=== PATIENT | male | born 1975 | race Two or more races ===

== ENCOUNTER 2018-01-29 19:42 | Inpatient (IN) | payer SELFPAY ==
[2018-01-29] MEDS ORDERED: Magnesium 2 GM/NS 0.9% 100 ML 2 GM in Premix Bag 1 BAG IVPB SCH (20:30)
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
[2018-01-29 20:37] LABS: Hemoglobin 13.8 g/dL (14.0-18.0); Mean Corpuscular HGB CONC 36.2 g/dL (32.0-36.0); Mean Corpuscular Volume 88.3 fL (78.0-98.0); Mean Platelet Volume 8.7 fL (7.4-10.4); Platelet Count 117 thou/uL (130-400); RBC Distribution Width 11.6 % (11.5-14.5)
[2018-01-29 20:39] LABS: Band 10 % (5-11); Lymphocytes 1 % (21-51); MDiff Complete? YES; Monocytes 10 % (0-10); Neutrophil 79 % (42-75); PLT Morphology Comment Appears Decreased; RBC Morphology Normal
[2018-01-29 20:46] LABS: Acetaminophen Less than 6.0 mcg/mL (10.0-30.0); Alcohol Less than 10 mg/dL (Less than 10); Lipase 40 U/L (8-78); Salicylate Less than 8.0 mg/dL (15.0-30.0)
[2018-01-29 20:47] LABS: ALT (SGPT) 85 U/L (8-55); AST (SGOT) 134 U/L (5-34); Alkaline Phosphatase 70 U/L (40-150); Anion Gap 22 mmol/L (10-20); BUN (Urea Nitrogen) 22 mg/dL (8.9-20.6); Bilirubin, Total 1.7 mg/dL (0.2-1.2); Calc. Creatinine Clearance 0 mL/min (70-130); Calcium 8.5 mg/dL (7.8-10.44); Carbon Dioxide 32 mmol/L (22-29); Estimated GFR-MDRD 54; Globulin 2.6 g/dL (2.4-3.5); Glucose 164 mg/dL (70-105); Protein, Total 6.6 g/dL (6.0-8.3)
[2018-01-29 20:51] LABS: Chloride 67 mmol/L (98-107); Potassium 2.1 mmol/L (3.5-5.1); Sodium 119 mmol/L (136-145)
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
[2018-01-29 21:45] LABS: Bilirubin Negative (Negative); Blood, Urine Large (Negative); Clarity CLOUDY (Clear); Glucose, Urine (Dipstick) Negative (Negative); Leukocyte Negative (Negative); Nitrite Negative (Negative); Protein, Urine (Dipstick) 100 mg/dL (Neg-Trace); Specific Gravity, Urine 1.016 (1.002-1.036); pH, Urine 6.5 (5.0-9.0)
[2018-01-29 21:47] LABS: Bacteria/HPF None Seen HPF (None Seen); Hyaline Casts/LPF 7-10 HYALINE CAST LPF (0-3 Hyaline); Pathc Cast-AUWi Flag 1.59 (0-2.49); Squamous Epithelial 0-3 HPF (0-3); WBC/HPF 0-3 HPF (0-3)
[2018-01-29 21:53] LABS: Medtox Reader # READER 4
[2018-01-29 21:55] LABS: Amphetamine Not Detected (NotDetected); Barbiturates Screen Not Detected (NotDetected); Benzodiazepine Screen Not Detected (NotDetected); Cocaine Metabolite Screen Not Detected (NotDetected); Medtox Control Line Valid? VALID (VALID); Methadone Not Detected (NotDetected); Methamphetamine Not Detected (NotDetected); Opiate Screen Not Detected (NotDetected); Oxycodone Screen Not Detected (NotDetected); Phencyclidine (PCP) Not Detected (NotDetected); THC/Cannabinoid Screen Not Detected (NotDetected); Transitional Epithelial 0-3 HPF (0-3); Tricyclic Screen Not Detected (NotDetected)
[2018-01-29 23:42] LABS: Anion Gap 17 mmol/L (10-20); BUN (Urea Nitrogen) 21 mg/dL (8.9-20.6); Calc. Creatinine Clearance 0 mL/min (70-130); Calcium 8.2 mg/dL (7.8-10.44); Carbon Dioxide 36 mmol/L (22-29); Estimated GFR-MDRD 67; Glucose 117 mg/dL (70-105); Sodium 121 mmol/L (136-145)
[2018-01-29 23:45] LABS: Chloride 70 mmol/L (98-107); Potassium 2.3 mmol/L (3.5-5.1)
[2018-01-30] MEDS ORDERED: Potassium Chloride 40 MEQ in Sodium Chloride 0.9% 250 ML 250 ML IVPB SCH
[2018-01-30] MEDS ORDERED: Potassium Chloride 20 MEQ TAB ONE (00:29)
[2018-01-30] MEDS ORDERED: Ondansetron HCl/PF 4 MG/2 ML Vial ONE (01:19)
[2018-01-30] MEDS ORDERED: Acetaminophen 325 MG TAB PO PRN (01:24)
[2018-01-30] MEDS ORDERED: Promethazine HCl 25 MG/ML VIAL IM/IV PRN (01:30)
[2018-01-30] MEDS ORDERED: Sodium Chloride 0.9% 1,000 ML IV SCH (01:30)
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
[2018-01-30 02:00] VITALS: BMI 24.5
[2018-01-30] MEDS: NS 0.9% w/ 40 MEQ KCL 1,000 ML IV SCH ×3 (02:43→21:18)
[2018-01-30 02:52] LABS: #Lymphocytes 0.5 thou/uL (1.20-3.40); #Monocytes 1.3 thou/uL (0.11-0.59); #Neutrophils 13.2 thou/uL (1.40-6.50); %Basophils 0.1 % (0.0-1.0); %Lymphocytes 3.2 % (21.0-51.0); %Monocytes 8.7 % (0.0-10.0); %Neutrophils 88.1 % (42.0-75.0); Hemoglobin 13.5 g/dL (14.0-18.0); Mean Corpuscular Hemoglobin 32.9 pg (27.0-31.0); Mean Platelet Volume 8.8 fL (7.4-10.4); Platelet Count 92 thou/uL (130-400); RBC Distribution Width 11.6 % (11.5-14.5); Red Blood Cell (RBC) Count 4.11 mill/uL (4.70-6.10)
[2018-01-30 03:09] LABS: Anion Gap 16 mmol/L (10-20); BUN (Urea Nitrogen) 22 mg/dL (8.9-20.6); Calc. Creatinine Clearance 98 mL/min (70-130); Calcium 8.3 mg/dL (7.8-10.44); Carbon Dioxide 37 mmol/L (22-29); Estimated GFR-MDRD 73; Glucose 108 mg/dL (70-105); Magnesium 3.5 mg/dL (1.6-2.6); Phosphorus 3.6 mg/dL (2.3-4.7); Sodium 122 mmol/L (136-145)
[2018-01-30 03:19] LABS: Chloride 72 mmol/L (98-107); Potassium 2.5 mmol/L (3.5-5.1)
[2018-01-30 05:17] LABS: Anion Gap 13 mmol/L (10-20); BUN (Urea Nitrogen) 21 mg/dL (8.9-20.6); Calc. Creatinine Clearance 99 mL/min (70-130); Carbon Dioxide 36 mmol/L (22-29); Chloride 75 mmol/L (98-107); Estimated GFR-MDRD 75; Glucose 113 mg/dL (70-105); Sodium 122 mmol/L (136-145)
[2018-01-30 05:22] LABS: Potassium 2.4 mmol/L (3.5-5.1)
[2018-01-30] MEDS ORDERED: Potassium Chloride 20 MEQ in Premix Bag 1 BAG IVPB SCH (06:30)
[2018-01-30] MEDS ORDERED: Famotidine/PF 20 mg/2ml Vial SLOW IVP SCH (09:00)
[2018-01-30 15:57] LABS: #Lymphocytes 0.6 thou/uL (1.20-3.40); #Neutrophils 12.5 thou/uL (1.40-6.50); %Basophils 0.1 % (0.0-1.0); %Eosinophils 0.1 % (0.0-10.0); %Lymphocytes 3.9 % (21.0-51.0); %Monocytes 6.8 % (0.0-10.0); Hemoglobin 14.7 g/dL (14.0-18.0); Mean Corpuscular Hemoglobin 32.5 pg (27.0-31.0); Mean Corpuscular Volume 90.3 fL (78.0-98.0); Mean Platelet Volume 8.6 fL (7.4-10.4); Platelet Count 92 thou/uL (130-400); RBC Distribution Width 11.6 % (11.5-14.5); Red Blood Cell (RBC) Count 4.52 mill/uL (4.70-6.10); White Blood Cell (WBC) Count 14.1 thou/uL (4.8-10.8)
[2018-01-30 16:12] LABS: Anion Gap 13 mmol/L (10-20); BUN (Urea Nitrogen) 18 mg/dL (8.9-20.6); Calc. Creatinine Clearance 90 mL/min (70-130); Calcium 8.5 mg/dL (7.8-10.44); Carbon Dioxide 35 mmol/L (22-29); Chloride 85 mmol/L (98-107); Estimated GFR-MDRD 66; Glucose 96 mg/dL (70-105); Sodium 130 mmol/L (136-145)
[2018-01-30 16:17] LABS: Potassium 2.6 mmol/L (3.5-5.1)
[2018-01-30 16:36] LABS: Potassium, Urine 12.1 mmol/L; Sodium, Urine Less than 20 mmol/L (Not Available)
[2018-01-30 16:43] LABS: HIV (1/2) Antibody/Antigen Non-Reactive (NonReactive); HIV 1/2 INDEX 0.24 S/CO (<1.00); Hep C IgG Ab Non-Reactive (NonReactive)
[2018-01-30] MEDS: Famotidine 20 MG TAB PO SCH (21:18)
[2018-01-30] MEDS ORDERED: Nicotine 14 MG PATCH TOP SCH (23:45)
[2018-01-31 04:11] LABS: #Lymphocytes 1.1 thou/uL (1.20-3.40); #Monocytes 0.8 thou/uL (0.11-0.59); #Neutrophils 5.5 thou/uL (1.40-6.50); %Basophils 0.2 % (0.0-1.0); %Eosinophils 0.2 % (0.0-10.0); %Neutrophils 73.7 % (42.0-75.0); Hemoglobin 12.7 g/dL (14.0-18.0); Mean Corpuscular HGB CONC 34.4 g/dL (32.0-36.0); Mean Corpuscular Hemoglobin 31.3 pg (27.0-31.0); Mean Platelet Volume 8.8 fL (7.4-10.4); Platelet Count 106 thou/uL (130-400); RBC Distribution Width 11.5 % (11.5-14.5); Red Blood Cell (RBC) Count 4.05 mill/uL (4.70-6.10); White Blood Cell (WBC) Count 7.5 thou/uL (4.8-10.8)
[2018-01-31 04:14] LABS: Anion Gap 11 mmol/L (10-20); BUN (Urea Nitrogen) 16 mg/dL (8.9-20.6); Calc. Creatinine Clearance 93 mL/min (70-130); Carbon Dioxide 32 mmol/L (22-29); Chloride 91 mmol/L (98-107); Estimated GFR-MDRD 69; Glucose 106 mg/dL (70-105); Sodium 131 mmol/L (136-145)
[2018-01-31 04:18] LABS: Magnesium 2.8 mg/dL (1.6-2.6); Potassium 2.6 mmol/L (3.5-5.1)
[2018-01-31] MEDS: Potassium Chloride 20 MEQ in Premix Bag 1 BAG IVPB SCH ×2 (04:36→08:28)
[2018-01-31] MEDS: Famotidine 20 MG TAB PO SCH ×2 (08:28→20:36)
[2018-01-31] MEDS: NS 0.9% w/ 40 MEQ KCL 1,000 ML IV SCH (11:34)
[2018-01-31 11:41] LABS: Osmolality, Urine 263 mOsm/kg (300-900)
[2018-01-31 12:00] LABS: Sodium, Urine 52 mmol/L (Not Available)
[2018-01-31] MEDS: ALPRAZolam 0.25 MG TAB PO PRN ×2 (12:58→20:36)
[2018-01-31] MEDS ORDERED: Potassium Chloride 20 MEQ TAB PO SCH (13:00)
--- NOTE | 2018-01-31 14:48 | PDOC.PN ---
- Subjective Encounter Start Date: 01/31/18 Encounter Start Time: 14:45 Subjective: reports anxiety.ready to leave AMA -: denies any drug abuse.denies any symptoms - Objective Resuscitation Status: Resuscitation Status FULL:Full Resuscitation MAR Reviewed: Yes Vital Signs & Weight: Vital Signs (12 hours) Temp Pulse Resp BP BP Pulse Ox 01/31/18 11:30 98.8 F 107 H 124/101 H 98 01/31/18 08:00 98.3 F 109 H 16 95 01/31/18 07:39 98.3 F 109 H 122/93 H 95 01/31/18 04:46 99 F 113 H 16 138/91 H 95 Weight Weight 173 lb 12.8 oz I&O: 01/30/18 01/31/18 02/01/18 06:59 06:59 06:59 Intake Total 820 3700 Output Total 1190 1900 Balance -370 1800 Result Diagrams: 01/31/18 03:21 01/31/18 03:21 Additional Labs: Laboratory Tests 01/30/18 15:44 Hepatitis C Antibody Non-Reactive HIV 1&2 Antigen & Ab Non-Reactive labs reviewed Phys Exam - Physical Examination Constitutional: NAD HEENT: PERRLA, moist MMs, sclera anicteric, oral pharynx no lesions Neck: no nodes, no JVD, supple, full ROM Respiratory: no wheezing, no rales, no rhonchi, wheezing present, clear to auscultation bilateral Cardiovascular: RRR, no significant murmur, no rub, irregular Gastrointestinal: soft, non-tender, no distention, positive bowel sounds Musculoskeletal: no edema, pulses present Neurological: non-focal, normal sensation, moves all 4 limbs Psychiatric: normal affect, A&O x 3 Skin: no rash Dx/Plan (1) Syncope Code(s): R55 - SYNCOPE AND COLLAPSE Status: Acute (2) Hypokalemia Code(s): E87.6 - HYPOKALEMIA Status: Acute (3) Hyponatremia Code(s): E87.1 - HYPO-OSMOLALITY AND HYPONATREMIA Status: Acute (4) Metabolic alkalosis Code(s): E87.3 - ALKALOSIS Status: Acute (5) Leucocytosis Code(s): D72.829 - ELEVATED WHITE BLOOD CELL COUNT, UNSPECIFIED Status: Acute (6) Thrombocytopenia Code(s): D69.6 - THROMBOCYTOPENIA, UNSPECIFIED Status: Acute (7) QT prolongation Code(s): R94.31 - ABNORMAL ELECTROCARDIOGRAM [ECG] [EKG] Status: Acute - Plan DVT proph w/SCDs replace and recheck lytes.UDS checked and negative -: HD stable. Ok to transfet to tele. -: Order ECHo given syncope & prolonged QT -: EEG to r/o seizures. -: cont to monitor.high risk for decompensation. * .am labs * will consult nephrology for severe hypokalemia & metabolic alkalosis w NL renal Fx Review of Systems - Review of Systems Constitutional: negative: fever, chills, sweats, weakness, malaise, other ENT: negative: Ear Pain, Ear Discharge, Nose Pain, Nose Discharge, Nose Congestion, Mouth Pain, Mouth Swelling, Throat Pain, Throat Swelling, Other Respiratory: negative: Cough, Dry, Shortness of Breath, Hemoptysis, SOB with Excertion, Pleuritic Pain, Sputum, Wheezing Cardiovascular: negative: chest pain, palpitations, orthopnea, paroxysmal nocturnal dyspnea, edema, light headedness, other Gastrointestinal: negative: Nausea, Vomiting, Abdominal Pain, Diarrhea, Constipation, Melena, Hematochezia, Other Genitourinary: negative: Dysuria, Frequency, Incontinence, Hematuria, Retention , Other Musculoskeletal: negative: Neck Pain, Shoulder Pain, Arm Pain, Back Pain, Hand Pain, Leg Pain, Foot Pain, Other Skin: negative: Rash, Lesions, Jose Elias, Bruising, Other Neurological: negative: Weakness, Numbness, Incoordination, Change in Speech, Confusion, Seizures, Other - Medications/Allergies Allergies/Adverse Reactions: Allergies Allergy/AdvReac Type Severity Reaction Status Date / Time No Known Allergies Allergy Verified 01/30/18 05:12 Medications: Current Medications Acetaminophen (Tylenol) 650 mg PO Q4H PRN PRN Reason: Headache/Fever or Pain Last Admin: 01/30/18 23:47 Dose: 650 mg Alprazolam (Xanax) 0.25 mg PO BIDPRN PRN PRN Reason: Anxiety Last Admin: 01/31/18 12:58 Dose: 0.25 mg Famotidine (Pepcid) 20 mg PO BID HIRAL Last Admin: 01/31/18 08:28 Dose: 20 mg Potassium Chloride (K-Dur) 40 meq PO TID-WM [facility] Stop: 02/01/18 12:01 Potassium Chloride (K-Dur) 40 meq PO 1300 [facility] Stop: 01/31/18 15:00 Last Admin: 01/31/18 12:58 Dose: 40 meq Promethazine HCl (Phenergan) 12.5 mg IM/IV Q6H PRN PRN Reason: Nausea/Vomiting Last Admin: 01/30/18 08:34 Dose: 12.5 mg Sodium Chloride (Flush - Normal Saline) 10 ml IVF Q12HR [facility] Last Admin: 01/31/18 08:29 Dose: Not Given Sodium Chloride (Flush - Normal Saline) 10 ml IVF PRN PRN PRN Reason: Saline Flush
--- NOTE | 2018-01-31 15:36 | CON ---
DATE OF CONSULTATION: 01/31/2018 CONSULTING PHYSICIAN: Dr. Salcedo. REASON FOR CONSULTATION: Hyponatremia, hypokalemia. REASON FOR ADMISSION: Syncope. HISTORY OF PRESENT ILLNESS: This is a 42-year-old male with no significant past medical history who came with syncope and poor p.o. intake and was found to be dehydrated with electrolyte abnormalities including sodium of 119 and this morning, it was corrected to 131 already in few hours. Hypokalemia, nephrology is consulted. No fevers or chills. No nausea or vomiting. PAST MEDICAL HISTORY: None. PAST SURGICAL HISTORY: Left shoulder surgery. HOME MEDICATIONS: None. ALLERGIES: No known drug allergies. SOCIAL HISTORY: He drinks and smokes. No illicit drug abuse reported. FAMILY HISTORY: No history of any kidney disease. REVIEW OF SYSTEMS: The following complete review of systems was negative, unless otherwise mentioned in the HPI or below: Constitutional: Weight loss or gain, ability to conduct usual activities. Skin: Rash, itching. Eyes: Double vision, pain. ENT/Mouth: Nose bleeding, neck stiffness, pain, tenderness. Cardiovascular: Palpitations, dyspnea on exertion, orthopnea. Respiratory: Shortness of breath, wheezing, cough, hemoptysis, fever or night sweats. Gastrointestinal: Poor appetite, abdominal pain, heartburn, nausea, vomiting, constipation, or diarr hea. Genitourinary: Urgency, frequency, dysuria, nocturia. Musculoskeletal: Pain, swelling. Neurologic/Psychiatric: Anxiety, depression. Allergy/Immunologic: Skin rash, bleeding tendency. PHYSICAL EXAMINATION: GENERAL: This is a thin-built male in no apparent distress. VITAL SIGNS: Temperature 98.8, pulse 107, respiratory rate 18, blood pressure 124/101. HEENT: Atraumatic, normocephalic. Oral mucosa is moist. NECK: Supple. CARDIOVASCULAR: S1, S2 heard. Rate and rhythm regular. RESPIRATORY: Clear to auscultation. GASTROINTESTINAL: Abdomen is soft. MUSCULOSKELETAL: No tenderness, no edema. DERMATOLOGIC: No skin rash. NEUROLOGIC: Alert and awake and oriented x3. No focal neurologic deficits. Moving all the extremit ies. PSYCHIATRIC: Mood and affect normal. LABORATORY DATA: Sodium is 131, potassium is 2.6, BUN is 16, creatinine is 1.1. ASSESSMENT AND PLAN: 1. Acute kidney injury most likely volume depletion. 2. Hyponatremia. Recommend to stop IV fluids. The patient already had 12 point correction in less than 24 hours. 3. Hypokalemia, replace. 4. Alkalosis. 5. Edema, controlled. 6. Hemoconcentration. Overall, he is feeling better. Replace potassium and stop intravenous fluids for now. We ruddy pantoja Thank you for the consult.
[2018-01-31] MEDS ORDERED: Haloperidol Lactate 5 MG/ML VIAL IM PRN (16:01)
[2018-01-31] MEDS: Potassium Chloride 20 MEQ TAB PO SCH (18:24)
[2018-01-31 20:29] LABS: Anion Gap 14 mmol/L (10-20); BUN (Urea Nitrogen) 12 mg/dL (8.9-20.6); Calc. Creatinine Clearance 100 mL/min (70-130); Calcium 8.7 mg/dL (7.8-10.44); Carbon Dioxide 25 mmol/L (22-29); Chloride 97 mmol/L (98-107); Estimated GFR-MDRD 76; Glucose 107 mg/dL (70-105); Potassium 3.1 mmol/L (3.5-5.1); Sodium 133 mmol/L (136-145)
[2018-02-01] MEDS: Famotidine 20 MG TAB PO SCH ×2 (10:27→20:22)
[2018-02-01] MEDS: Potassium Chloride 20 MEQ TAB PO SCH ×2 (10:28→13:57)
--- NOTE | 2018-02-01 10:56 | PRG ---
DATE OF SERVICE: 02/01/2018 SUBJECTIVE: This is a 42-year-old gentleman being seen for acute kidney injury. The patient denies any nausea, vomiting or chest pain. PHYSICAL EXAMINATION: GENERAL: Patient is awake, alert. VITAL SIGNS: Afebrile, pulse 104, breathing 16, blood pressure 141/82. OBJECTIVE: See above. Awake, alert, in no acute distress. GENERAL APPEARANCE AND MENTAL STATUS: Fair. HEAD/NECK: Normocephalic. Atraumatic. EYES: EOMI. No deformity. EARS: Clear. No ulcers. NOSE: Intact. No lesions. MOUTH: Clear. No discharge. THROAT: Clear. No exudate. LUNGS: Clear. No crackles. CARDIAC: S1, S2. No rub. ABDOMEN: Benign. BS+. GENITALIA/RECTUM: [place] absent. BACK/EXTREMITIES: Edema 0+ Ulcer- NEUROLOGICAL: Alert and motor intact. SKIN: Rash- Bruise- LYMPHATICS: Edema- Ulcer- LABORATORY: Hemoglobin 12.7, potassium 3.1, creatinine 1.0. ASSESSMENT AND RECOMMENDATIONS: 1. Acute kidney injury, improved. 2. Hypokalemia. Recommend high potassium diet and 40 mEq potassium. 3. Hyponatremia, stable. 4. Anemia, stable. 5. Medications based on glomerular filtration rate are appropriate. No indication for dialysis. The patient can follow up with Dr. Stewart in 1 week.
[2018-02-01 11:11] LABS: #Basophils 0.1 thou/uL (0.0-0.2); #Eosinphils 0.2 thou/uL (0.0-0.7); #Lymphocytes 1.4 thou/uL (1.20-3.40); #Neutrophils 4.2 thou/uL (1.40-6.50); %Basophils 1.3 % (0.0-1.0); %Eosinophils 2.5 % (0.0-10.0); %Lymphocytes 20.1 % (21.0-51.0); %Monocytes 14.4 % (0.0-10.0); %Neutrophils 61.8 % (42.0-75.0); Mean Corpuscular HGB CONC 34.9 g/dL (32.0-36.0); Mean Corpuscular Volume 91.6 fL (78.0-98.0); Mean Platelet Volume 8.1 fL (7.4-10.4); Platelet Count 142 thou/uL (130-400); RBC Distribution Width 11.6 % (11.5-14.5); Red Blood Cell (RBC) Count 4.08 mill/uL (4.70-6.10); White Blood Cell (WBC) Count 6.8 thou/uL (4.8-10.8)
[2018-02-01 12:05] LABS: Anion Gap 11 mmol/L (10-20); BUN (Urea Nitrogen) 11 mg/dL (8.9-20.6); Calc. Creatinine Clearance 121 mL/min (70-130); Calcium 8.9 mg/dL (7.8-10.44); Carbon Dioxide 25 mmol/L (22-29); Chloride 100 mmol/L (98-107); Estimated GFR-MDRD 89; Glucose 97 mg/dL (70-105); Potassium 3.4 mmol/L (3.5-5.1); Sodium 133 mmol/L (136-145)
--- NOTE | 2018-02-01 13:25 | PDOC.PN ---
- Subjective Encounter Start Date: 02/01/18 Encounter Start Time: 13:24 Subjective: seen & examined at bedside.refused labs this morning -: he wanted to leave and then come back to take care of his car -: explained that he needs to let us check labs o/w he will be discharged - Objective Resuscitation Status: Resuscitation Status FULL:Full Resuscitation MAR Reviewed: Yes Vital Signs & Weight: Vital Signs (12 hours) Temp Pulse Resp BP Pulse Ox 02/01/18 10:30 99.4 F 88 20 144/87 H 02/01/18 04:30 98.5 F 117 H 20 141/82 H 98 Weight Weight 183 lb 9.6 oz I&O: 01/31/18 02/01/18 02/02/18 06:59 06:59 06:59 Intake Total 3700 960 Output Total 1900 300 Balance 1800 660 Result Diagrams: 02/01/18 10:19 02/01/18 10:19 Additional Labs: labs reviewed Phys Exam - Physical Examination Constitutional: NAD HEENT: PERRLA, moist MMs, sclera anicteric, oral pharynx no lesions Neck: no nodes, no JVD, supple, full ROM Respiratory: no wheezing, no rales, no rhonchi, clear to auscultation bilateral Cardiovascular: RRR, no significant murmur Gastrointestinal: soft, non-tender, no distention, positive bowel sounds Musculoskeletal: no edema, pulses present Neurological: non-focal, normal sensation, moves all 4 limbs Deviation from normal: agitated Skin: no rash Dx/Plan (1) Syncope Code(s): R55 - SYNCOPE AND COLLAPSE Status: Acute Comment: ECHO normal (2) Hypokalemia Code(s): E87.6 - HYPOKALEMIA Status: Acute (3) Hyponatremia Code(s): E87.1 - HYPO-OSMOLALITY AND HYPONATREMIA Status: Acute (4) Metabolic alkalosis Code(s): E87.3 - ALKALOSIS Status: Resolved (5) Leucocytosis Code(s): D72.829 - ELEVATED WHITE BLOOD CELL COUNT, UNSPECIFIED Status: Acute (6) Thrombocytopenia Code(s): D69.6 - THROMBOCYTOPENIA, UNSPECIFIED Status: Resolved (7) QT prolongation Code(s): R94.31 - ABNORMAL ELECTROCARDIOGRAM [ECG] [EKG] Status: Acute - Plan out of bed/ambulate, DVT proph w/SCDs replace and recheck potassium.sodium better.no evidence of ingection -: ECHO WNL. EEG pending -: Likley home tomorrow if Potassium normal. -: OK to transfer to medical. -: advised the need for morning labs.pt agreeable * . Review of Systems - Review of Systems Constitutional: negative: fever, chills, sweats, weakness, malaise, other ENT: negative: Ear Pain, Ear Discharge, Nose Pain, Nose Discharge, Nose Congestion, Mouth Pain, Mouth Swelling, Throat Pain, Throat Swelling, Other Respiratory: negative: Cough, Dry, Shortness of Breath, Hemoptysis, SOB with Excertion, Pleuritic Pain, Sputum, Wheezing Cardiovascular: negative: chest pain, palpitations, orthopnea, paroxysmal nocturnal dyspnea, edema, light headedness, other Gastrointestinal: negative: Nausea, Vomiting, Abdominal Pain, Diarrhea, Constipation, Melena, Hematochezia, Other Genitourinary: negative: Dysuria, Frequency, Incontinence, Hematuria, Retention , Other Musculoskeletal: negative: Neck Pain, Shoulder Pain, Arm Pain, Back Pain, Hand Pain, Leg Pain, Foot Pain, Other Skin: negative: Rash, Lesions, Jose Elias, Bruising, Other Neurological: negative: Weakness, Numbness, Incoordination, Change in Speech, Confusion, Seizures, Other - Medications/Allergies Allergies/Adverse Reactions: Allergies Allergy/AdvReac Type Severity Reaction Status Date / Time No Known Allergies Allergy Verified 01/30/18 05:12 Medications: Current Medications Acetaminophen (Tylenol) 650 mg PO Q4H PRN PRN Reason: Headache/Fever or Pain Last Admin: 01/30/18 23:47 Dose: 650 mg Alprazolam (Xanax) 0.25 mg PO BIDPRN PRN PRN Reason: Anxiety Last Admin: 01/31/18 20:36 Dose: 0.25 mg Famotidine (Pepcid) 20 mg PO BID HIRAL Last Admin: 02/01/18 10:27 Dose: 20 mg Haloperidol Lactate (Haldol) 2 mg IM ONE PRN PRN Reason: Agitation Stop: 02/01/18 16:02 Potassium Chloride (K-Dur) 40 meq PO ONE [facility] Promethazine HCl (Phenergan) 12.5 mg IM/IV Q6H PRN PRN Reason: Nausea/Vomiting Last Admin: 01/30/18 08:34 Dose: 12.5 mg Sodium Chloride (Flush - Normal Saline) 10 ml IVF Q12HR HIRAL Last Admin: 02/01/18 10:29 Dose: Not Given Sodium Chloride (Flush - Normal Saline) 10 ml IVF PRN PRN PRN Reason: Saline Flush
[2018-02-01] MEDS ORDERED: Potassium Chloride 20 MEQ TAB PO SCH ×2 (13:30→17:30)
[2018-02-01] MEDS ORDERED: Nicotine 21 MG PATCH TOP SCH (16:00)
[2018-02-01] MEDS: ALPRAZolam 0.25 MG TAB PO PRN (20:27)
[2018-02-02 04:26] LABS: #Basophils 0.1 thou/uL (0.0-0.2); #Eosinphils 0.2 thou/uL (0.0-0.7); #Lymphocytes 1.4 thou/uL (1.20-3.40); #Neutrophils 4.3 thou/uL (1.40-6.50); %Basophils 0.9 % (0.0-1.0); %Eosinophils 2.5 % (0.0-10.0); %Lymphocytes 20.6 % (21.0-51.0); %Monocytes 14.7 % (0.0-10.0); %Neutrophils 61.4 % (42.0-75.0); Hemoglobin 13.4 g/dL (14.0-18.0); Mean Corpuscular HGB CONC 36.1 g/dL (32.0-36.0); Mean Corpuscular Hemoglobin 32.8 pg (27.0-31.0); Mean Platelet Volume 7.5 fL (7.4-10.4); Platelet Count 157 thou/uL (130-400); RBC Distribution Width 11.8 % (11.5-14.5); Red Blood Cell (RBC) Count 4.08 mill/uL (4.70-6.10)
[2018-02-02 04:34] LABS: Anion Gap 12 mmol/L (10-20); BUN (Urea Nitrogen) 10 mg/dL (8.9-20.6); Calc. Creatinine Clearance 132 mL/min (70-130); Calcium 9.4 mg/dL (7.8-10.44); Carbon Dioxide 25 mmol/L (22-29); Chloride 101 mmol/L (98-107); Estimated GFR-MDRD Greater than 90; Glucose 126 mg/dL (70-105); Potassium 3.6 mmol/L (3.5-5.1); Sodium 134 mmol/L (136-145)
[2018-02-02 07:17] VITALS: BP 142/69; TEMP 98.7
[2018-02-02] MEDS: Famotidine 20 MG TAB PO SCH (08:22)
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
[2018-02-04 13:19] LABS: Hep B Surface AG-Rflx Sendout Negative (Negative); Hepatitis B Core IgM AB Negative (Negative); Hepatitis B Core Total Negative (Negative); Hepatitis B Surface AB-Sendout Non Reactive (.)
== END 2018-02-02 14:12 | disposition home or self-care (01) | DRG 683 ==
LOC: ERS 19:42 → ERHOLD 01-30 00:22 → IMCU/EMU 01-30 01:43 → 2NO 01-31 15:10 → T4-B 02-01 14:56
PROVIDERS: ADMIT Internal Medicine; ATTEND Internal Medicine
DX: N17.9 Acute kidney failure, unspecified (principal); E87.1 Hypo-osmolality and hyponatremia; E87.3 Alkalosis; R55 Syncope and collapse; E87.6 Hypokalemia; E86.0 Dehydration; D69.6 Thrombocytopenia, unspecified; R94.31 Abnormal electrocardiogram [ECG] [EKG]; F17.210 Nicotine dependence, cigarettes, uncomplicated
CPT/HCPCS: 36415; 70450; 71045; 80048; 80053; 80306; 80307; 81003; 81015; 83690; 83735; 83930; 83935; 84100; 84133; 84300; 84443; 85025; 86704; 86705; 86706; 86707; 86803; 87081; 87340; 87350; 87389; 87430; 93005; 93306; 94760; 95816; 95819; 96365; 96367; 96375; A4216; J2405; J2550; J3475; J3480; J7050; S0028